=== PATIENT | female | born 1995 | race Caucasian/White ===

== ENCOUNTER 2017-02-28 03:00 | Emergency (ER) | payer BC ==
[2017-02-28 03:17] VITALS: TEMP 97.5
[2017-02-28 03:40] LABS: CALCIUM 8.8 mg/dl (8.5-10.1)
[2017-02-28 04:03] VITALS: BP 122/87; PULSE 100; RESP 16; O2SAT 98
== END 2017-02-28 04:34 | disposition home or self-care (01) ==
LOC: ED 03:00
DX: F10.129 Alcohol abuse with intoxication, unspecified (principal); Y90.6 Blood alcohol level of 120-199 mg/100 ml
CPT/HCPCS: 36415; 80048; 80307; 99283